=== PATIENT | female | born 1960 | race Caucasian/White ===

== ENCOUNTER 2021-05-13 13:56 | Emergency (ER) | payer OTHER ==
[2021-05-13] MEDS ORDERED: LEVETIRACETAM 500 MG/5 ML VIAL IV ONE (15:08)
[2021-05-13] MEDS ORDERED: NA CHLORIDE 0.9% 100 ML ONE (15:09)
--- NOTE | 2021-05-13 15:27 | EDPHYS ---
Physician Documentation [facility] Name: Tia Stevens Age: 60 yrs Sex: Female : 1960 Arrival Date: 05/13/2021 Time: 14:03 Bed 16 Private MD: ED Physician Kaiser Lyon HPI: 05/13 14:05 This 60 yrs old Female presents to ER via Unassigned with complaints of rn Seizure. 14:05 The patient presents after having a single isolated seizure. Character of seizure(s): rn Loss of consciousness: the patient did not lose consciousness, Motor activity: generalized, Incontinence: none, Apnea: the patient did not experience apnea, Circulation: the patient did not experience evidence of pulse disturbance, Eye movements: are unknown. Seizure onset: just prior to arrival. Context: the seizure(s) was witnessed, by a friend, occurred at a friend's home, occurred while the patient was at rest, Contributing factors: missed recent doses of medications. Associated injury: The patient did not suffer any apparent associated injury. Current symptoms: Currently, the patient is not experiencing any symptoms. The patient has experienced similar episodes in the past. The patient has not recently seen a physician. Patient reports long history of seizures. Recently ran out of her Keppra. has a prescription waiting in the pharmacy and is ready at 2 PM today. Was at a friend's house when had a witnessed seizure. Brief. Now back to baseline. Denies any recent illness or other problems going on at this time. States she just needs her medication. would not have come to the ER for any other reason if her friend had not called 911 for her seizure.. Historical: - Allergies: 14:32 No Known Allergies; es2 - PMHx: 14:32 Seizure; es2 - Immunization history:: Adult Immunizations Client reports receiving the Srikanth \T\ Srikanth single-dose vaccine. - Social history:: Smoking status: Patient reports the use of cigarette tobacco products, smokes one-half pack cigarettes per day. - Family history:: not pertinent. - Hospitalizations: : No recent hospitalization is reported. ROS: 14:05 Constitutional: Negative for fever, chills, and weight loss, Eyes: Negative for injury, rn pain, redness, and discharge, ENT: Negative for injury, pain, and discharge, Neck: Negative for injury, pain, and swelling, Cardiovascular: Negative for chest pain, palpitations, and edema, Respiratory: Negative for shortness of breath, cough, wheezing, and pleuritic chest pain, Abdomen/GI: Negative for abdominal pain, nausea, vomiting, diarrhea, and constipation, Back: Negative for injury and pain, : Negative for injury, bleeding, discharge, and swelling, MS/Extremity: Negative for injury and deformity, Skin: Negative for injury, rash, and discoloration, Neuro: Negative for headache, weakness, numbness, tingling 14:05 All other systems are negative. Exam: 14:05 Constitutional: This is a well developed, well nourished patient who is awake, alert, rn and in no acute distress. Head/Face: Normocephalic, atraumatic. Eyes: Pupils equal round and reactive to light, extra-ocular motions intact. Periorbital areas with no swelling, redness, or edema. ENT: Mucous membranes moist. Cardiovascular: Regular rate and rhythm. No pulse deficits. Respiratory: No increased work of breathing, no retractions or nasal flaring. Abdomen/GI: Soft, non-tender Skin: Warm, dry with normal turgor. Normal color with no rashes, no lesions, and no evidence of cellulitis. MS/ Extremity: Pulses equal, no cyanosis. Neurovascular intact. Full, normal range of motion. Equal circumference. Neuro: Awake and alert, GCS 15, oriented to person, place, time, and situation. Cranial nerves II-XII grossly intact. Motor strength 5/5 in all extremities. Sensory grossly intact. Cerebellar exam normal. 15:22 ECG was reviewed by the Attending Physician. rn Vital Signs: 14:31 BP 105 / 81; Pulse 77; Resp 17; Temp 98.6; Pulse Ox 94% on R/A; es2 14:31 BP 111 / 81; Pulse 80; Resp 22; Pulse Ox 96% on R/A; es2 15:00 BP 101 / 78; Pulse 72; Resp 24; Pulse Ox 95% on R/A; es2 15:26 BP 104 / 77; Pulse 70; Resp 17; Pulse Ox 96% ; es2 [place] Coma Score: 14:32 Eye Response: spontaneous(4). Verbal Response: oriented(5). Motor Response: obeys es2 commands(6). Total: 15. MDM: 14:03 Patient medically screened. rn 15:21 Differential diagnosis: seizure. Data reviewed: vital signs, nurses notes. rn 15:22 Counseling: I had a detailed discussion with the patient and/or guardian regarding: the rn historical points, exam findings, and any diagnostic results supporting the discharge/admit diagnosis, the need for outpatient follow up, to return to the emergency department if symptoms worsen or persist or if there are any questions or concerns that arise at home. Response to treatment: the patient's symptoms have markedly improved after treatment, the patient's symptoms have resolved after treatment, the patient's condition has returned to base line, and as a result, I will discharge patient. Special discussion: I discussed with the patient/guardian in detail that at this point there is no indication for admission to the hospital. It is understood, however, that if the symptoms persist or worsen the patient needs to return immediately for re-evaluation. Based on the history and exam findings, there is no indication for further emergent testing or inpatient evaluation. I discussed with the patient/guardian the need to see the neurologist for further evaluation of the symptoms. ED course: At baseline, no seizure activity here. States pharmacy has already filled the meds just needs to go pick them up. Loaded with Keppra here. Will DC home with return precautions.. 05/13 14:04 Order name: EKG; Complete Time: 14:04 rn 05/13 14:04 Order name: EKG - Nurse/Tech; Complete Time: 14:54 rn 05/13 14:04 Order name: IV Start; Complete Time: 14:42 rn EC: Rate is 72 beats/min. Rhythm is regular. QRS Dickinson is Normal. MS interval is normal. QRS rn interval is normal. QT interval is normal. No Q waves. T waves are Normal. No ST changes noted. Clinical impression: NSR w/ Non-specific ST/T Changes. Interpreted by me. Reviewed by me. Administered Medications: 14:53 Drug: Keppra (levETIRAcetam) 1000 mg Route: IV; Rate: calculated rate; Site: right es2 antecubital; 15:27 Follow up: IV Status: Completed infusion es2 Disposition Summary: 05/13/21 15:26 Discharge Ordered Location: Home rn Problem: new rn Symptoms: have improved rn Condition: Stable rn Diagnosis - Epileptic seizures related to external causes, not intractable, without status rn epilepticus Followup: rn - With: Private Physician - When: As needed - Reason: Recheck today's complaints, Re-evaluation by your physician Discharge Instructions: - Discharge Summary Sheet rn - Epilepsy rn - Seizure, Adult rn Forms: - Medication Reconciliation Form rn - Thank You Letter rn - Antibiotic overnight associate - Prescription Opioid Use rn Signatures: Kaiser Lyon MD MD rn Smith, Elizabeth, RN RN es2
--- NOTE | 2021-05-13 15:27 | ER ---
Nurse's Notes [facility] Name: Tia Stevens Age: 60 yrs Sex: Female : 1960 Arrival Date: 05/13/2021 Time: 14:03 Bed 16 Private MD: Diagnosis: Epileptic seizures related to external causes, not intractable, without status epilepticus Presentation: 05/13 14:31 Chief complaint: EMS states: Seizure. Coronavirus screen: Client denies travel out of es2 the [place] in the last 14 days. Ebola Screen: Patient negative for fever greater than or equal to 101.5 degrees Fahrenheit, and additional compatible Ebola Virus Disease symptoms Patient denies exposure to infectious person. Patient denies travel to an Ebola-affected area in the 21 days before illness onset. No symptoms or risks identified at this time. Initial Sepsis Screen: Does the patient meet any 2 criteria? No. Patient's initial sepsis screen is negative. Does the patient have a suspected source of infection? No. Patient's initial sepsis screen is negative. Onset of symptoms was May 13, 2021. 14:31 Method Of Arrival: EMS: [facility] es2 15:29 Acuity: KAYE 2 es2 15:31 Risk Assessment: Do you want to hurt yourself or someone else? Patient reports no es2 desire to harm self or others. Triage Assessment: 14:32 General: Appears in no apparent distress. comfortable, well groomed, Behavior is calm, es2 cooperative, appropriate for age. Pain: Denies pain. EENT: No signs and/or symptoms were reported regarding the EENT system. Neuro: Level of Consciousness is awake, alert, obeys commands, Oriented to person, place, time, situation, Appropriate for age Speech is normal. Cardiovascular: Capillary refill < 3 seconds Patient's skin is warm and dry. Respiratory: Airway is patent Respiratory effort is even, unlabored, Respiratory pattern is regular, symmetrical. GI: No signs and/or symptoms were reported involving the gastrointestinal system. : No signs and/or symptoms were reported regarding the genitourinary system. Derm: Skin is intact, Skin is dry, Skin is pink, warm \T\ dry. normal, Skin temperature is warm. Musculoskeletal: No signs and/or symptoms reported regarding the musculoskeletal system. Historical: - Allergies: 14:32 No Known Allergies; es2 - PMHx: 14:32 Seizure; es2 - Immunization history:: Adult Immunizations Client reports receiving the Srikanth \T\ Srikanth single-dose vaccine. - Social history:: Smoking status: Patient reports the use of cigarette tobacco products, smokes one-half pack cigarettes per day. - Family history:: not pertinent. - Hospitalizations: : No recent hospitalization is reported. Screenin:29 Abuse screen: Denies threats or abuse. Denies injuries from another. Nutritional es2 screening: No deficits noted. Tuberculosis screening: No symptoms or risk factors identified. Fall Risk Secondary diagnosis (15 points) seizures, Assessment: 14:36 Reassessment: Patient and/or family updated on plan of care and expected duration. Pain es2 level reassessed. Patient is alert, oriented x 3, equal unlabored respirations, skin warm/dry/pink. Patient has hx of seizures. Takes Keppra at home, ran out 2 days ago. Was to picker feeder prescription today at 2, had seizure before picking up med. Per EMS, lasted about 5 minutes. Patient was AOx1 when EMS got her, per EMS. Patient now AOx4. Patient denies pain at this time. General: Appears comfortable, Behavior is calm, cooperative, appropriate for age. Pain: Denies pain. Neuro: Level of Consciousness is awake, alert, obeys commands, Oriented to person, place, time, situation, Appropriate for age Speech is normal. Cardiovascular: Capillary refill < 3 seconds Patient's skin is warm and dry. Respiratory: Airway is patent Respiratory effort is even, unlabored, Respiratory pattern is regular, symmetrical. GI: No signs and/or symptoms were reported involving the gastrointestinal system. : No signs and/or symptoms were reported regarding the genitourinary system. EENT: No signs and/or symptoms were reported regarding the EENT system. Derm: No signs and/or symptoms reported regarding the dermatologic system. Musculoskeletal: No signs and/or symptoms reported regarding the musculoskeletal system. Vital Signs: 14:31 BP 105 / 81; Pulse 77; Resp 17; Temp 98.6; Pulse Ox 94% on R/A; es2 14:31 BP 111 / 81; Pulse 80; Resp 22; Pulse Ox 96% on R/A; es2 15:00 BP 101 / 78; Pulse 72; Resp 24; Pulse Ox 95% on R/A; es2 15:26 BP 104 / 77; Pulse 70; Resp 17; Pulse Ox 96% ; es2 [place] Coma Score: 14:32 Eye Response: spontaneous(4). Verbal Response: oriented(5). Motor Response: obeys es2 commands(6). Total: 15. ED Course: 14:03 Patient arrived in ED. rn 14:03 Kaiser Lyon MD is Attending Physician. rn 14:36 Arm band placed on right wrist. es2 14:39 Maintain EMS IV. Dressing intact. Site clean \T\ dry. Gauge \T\ site: 20G R AC... IV. es 2 14:54 Mare Zuniga RN is Primary Nurse. es2 15:29 Triage completed. es2 15:30 Patient has correct armband on for positive identification. Bed in low position. Call es2 light in reach. Side rails up X2. 15:31 Seizure precautions initiated. es2 15:31 No provider procedures requiring assistance completed. es2 15:43 IV discontinued, intact, bleeding controlled, No redness/swelling at site. Pressure es2 dressing applied. Administered Medications: 14:53 Drug: Keppra (levETIRAcetam) 1000 mg Route: IV; Rate: calculated rate; Site: right es2 antecubital; 15:27 Follow up: IV Status: Completed infusion es2 Outcome: 15:26 Discharge ordered by . rn 15:43 Discharged to home ambulatory, with family. es2 15:43 Condition: stable 15:43 Discharge instructions given to patient, family, Instructed on discharge instructions, follow up and referral plans. Demonstrated understanding of instructions, follow-up care. 15:44 Patient left the ED. es2 Signatures: Kaiser Lyon MD MD rn Smith, Elizabeth, RN RN es2
[2021-05-13 15:51] VITALS: TEMP 98.6
[2021-05-13 15:54] VITALS: BP 104/77; O2SAT 96
--- NOTE | 2021-05-14 10:25 | EKG ---
Test Date: 2021-05-13 Test Time: 14:47:22 Orthopedics Nurse: ADELINA MEASUREMENT RESULTS: Intervals: Rate: 72 SC: 136 QRSD: 114 QT: 394 QTc: 431 Mathews: P: 36 SC: 136 QRS: 11 T: 48 INTERPRETIVE STATEMENTS: Normal sinus rhythm Septal infarct, age undetermined Abnormal ECG No previous ECG available for comparison Electronically Signed On 05-14-21 10:22:06 CDT by Espinoza Gomez
== END 2021-05-13 15:44 | disposition home or self-care (01) ==
LOC: ER 13:56
DX: G40.509 Epileptic seizures related to external causes, not intractable, without status epilepticus (principal); F17.210 Nicotine dependence, cigarettes, uncomplicated
CPT/HCPCS: 96365; 93005; 99283; J1953